=== PATIENT | male | born 1975 | race African-American/Black ===

== ENCOUNTER 2020-06-22 09:28 | Outpatient (REF) | payer OTHER, SELFPAY | END 2020-06-22 09:29 | disposition home or self-care (01) | LOC: HO.LAB 09:28 | PROVIDERS: Visit Provider Internal Medicine | DX: Z20.828 Contact with and (suspected) exposure to other viral communicable diseases (principal) | CPT/HCPCS: C9803; U0003 ==

== ENCOUNTER 2020-07-15 07:54 | Outpatient (REF) | payer OTHER, SELFPAY | END 2020-07-15 07:55 | disposition home or self-care (01) | LOC: HO.LAB 07:54 | PROVIDERS: Visit Provider Internal Medicine | DX: Z20.828 Contact with and (suspected) exposure to other viral communicable diseases (principal) | CPT/HCPCS: C9803; U0003 ==